=== PATIENT | female | born 1940 | race African-American/Black ===

== ENCOUNTER 2019-08-13 17:23 | Inpatient (IN) | payer MEDICARE, MEDICAID ==
[~2019-08-13] VITALS: Ht 167.6 cm; Wt 110.7 kg
[2019-08-13] MEDS ORDERED: ASPIRIN 81MG TABLET PO ONE (23:00)
[2019-08-13 23:36] LABS: BASOPHILS % 1.3 % (0.0-2.0); EOSINOPHILS % 0.7 % (0.0-5.0); HEMOGLOBIN. 13.8 g/dL (12.0-16.0); LYMPHOCYTES % 25.2 % (20.0-50.0); MEAN CORPUSCULAR HEMOGLOBIN 29.4 pg (28.0-32.0); MEAN CORPUSCULAR VOLUME 87.4 fL (81.0-99.0); MEAN PLATELET VOLUME 8.5 fl (7.4-10.4); MONOCYTES % 6.8 % (2.0-8.0); PLATELET 258 x1000/uL (130-400); RED BLOOD CELL COUNT 4.69 mill/uL (4.2-5.4); RED CELL DISTRIBUTION WIDTH 13.4 % (11.6-14.6)
[2019-08-13 23:49] LABS: INR 1.2; PARTIAL THROMBOPLASTIN TIME 27.3 sec (23.4-31.0); PROTHROMBIN TIME 11.9 sec (9.6-11.0)
[2019-08-13 23:51] LABS: CHLORIDE 106 mEq/L (98-107)
[2019-08-14 01:03] LABS: CLARITY URINE CLOUDY (CLEAR); COLOR URINE YELLOW (YELLOW); KETONES URINE TRACE (NEGATIVE); LEUKOCYTE ESTERASE URINE 2+ (NEGATIVE); NITRITE URINE NEGATIVE (NEGATIVE); OCCULT BLOOD URINE NEGATIVE (NEGATIVE); PH URINE 5.5 (4.5-8.0); PROTEIN URINE TRACE (NEGATIVE); SPECIFIC GRAVITY URINE 1.021 (1.005-1.030); UROBILINOGEN URINE 0.2 E.U./dL (0.2-1.0)
[2019-08-14] MEDS: NIFEDIPINE XL 30MG TAB PO SCH (11:23)
[2019-08-14] MEDS: LISINOPRIL 20MG TABLET PO SCH (11:23)
[2019-08-14 18:57] VITALS: BP 167/91
[2019-08-14] MEDS: NITROFURANTOIN 100MG M/M CAPSULE PO SCH (19:03)
[2019-08-14 20:00] VITALS: BP 148/101
[2019-08-14] MEDS: ATORVASTATIN CALCIUM 20MG TABLET PO SCH (20:12)
[2019-08-14 22:51] VITALS: BP 148/101
[2019-08-15] VITALS: BP 157/88
[2019-08-15 04:00] VITALS: BP 166/89
[2019-08-15] MEDS ORDERED: TRAZ-252 PO (04:24)
[2019-08-15] MEDS ORDERED: METF-414 PO (04:24)
[2019-08-15] MEDS: NITROFURANTOIN 100MG M/M CAPSULE PO SCH ×2 (05:51→18:36)
[2019-08-15 08:00] VITALS: BP 200/95
[2019-08-15] MEDS ORDERED: ASPI-1160 PO (09:47)
[2019-08-15] MEDS ORDERED: NITR100C11 PO (09:47)
[2019-08-15] MEDS ORDERED: ATOR20TA PO (09:52)
[2019-08-15] MEDS ORDERED: LISI-604 PO (09:52)
[2019-08-15] MEDS ORDERED: NIFE-33 PO (09:52)
[2019-08-15] MEDS: LISINOPRIL 20MG TABLET PO SCH (12:13)
[2019-08-15] MEDS: ASPIRIN 81MG TABLET PO SCH ×2 (12:13→12:14)
[2019-08-15] MEDS: NIFEDIPINE XL 30MG TAB PO SCH (12:13)
[2019-08-15] MEDS ORDERED: DEXTROSE 50% WATER 50ML SYRINGE IV PRN (13:00)
[2019-08-15] MEDS: INSULIN LISPRO 100 UNITS/ML SUBCUT SCH ×3 (13:10→21:00)
[2019-08-15 16:00] VITALS: BP 191/115
[2019-08-15] MEDS: BLOOD SUGAR DIAGNOSTIC STRIP TEST SCH ×2 (18:22→21:25)
[2019-08-15 20:00] VITALS: BP 99/73
[2019-08-15] MEDS: ATORVASTATIN CALCIUM 20MG TABLET PO SCH (21:25)
[2019-08-16 00:55] VITALS: BP 148/84
[2019-08-16 04:00] VITALS: BP 150/77
[2019-08-16] MEDS: INSULIN LISPRO 100 UNITS/ML SUBCUT SCH ×4 (06:18→21:00)
[2019-08-16] MEDS: BLOOD SUGAR DIAGNOSTIC STRIP TEST SCH ×4 (06:18→21:46)
[2019-08-16] MEDS: NITROFURANTOIN 100MG M/M CAPSULE PO SCH ×2 (06:33→17:21)
[2019-08-16 08:00] VITALS: BP 152/91
[2019-08-16] MEDS: ASPIRIN 81MG TABLET PO SCH (10:02)
[2019-08-16] MEDS: LISINOPRIL 20MG TABLET PO SCH (10:02)
[2019-08-16] MEDS: NIFEDIPINE XL 30MG TAB PO SCH (10:02)
[2019-08-16 12:00] VITALS: BP 166/68
[2019-08-16 16:00] VITALS: BP 152/84
[2019-08-16 20:00] VITALS: BP 102/48
[2019-08-16] MEDS: ATORVASTATIN CALCIUM 20MG TABLET PO SCH (21:46)
[2019-08-17] VITALS: BP 130/69
[2019-08-17 00:21] VITALS: BP 142/82
[2019-08-17 04:00] VITALS: BP 128/70
[2019-08-17] MEDS: NITROFURANTOIN 100MG M/M CAPSULE PO SCH (05:59)
[2019-08-17] MEDS: BLOOD SUGAR DIAGNOSTIC STRIP TEST SCH ×2 (06:18→12:45)
[2019-08-17] MEDS: INSULIN LISPRO 100 UNITS/ML SUBCUT SCH ×2 (07:06→12:46)
[2019-08-17 08:00] VITALS: BP 151/95
[2019-08-17] MEDS: NIFEDIPINE XL 30MG TAB PO SCH (09:16)
[2019-08-17] MEDS: LISINOPRIL 20MG TABLET PO SCH (09:16)
[2019-08-17] MEDS: ASPIRIN 81MG TABLET PO SCH (09:16)
[2019-08-17 12:00] VITALS: BP 158/96
[2019-08-17] MEDS: LACTULOSE 20G/30ML UDC PO SCH ×2 (14:21→15:56)
[2019-08-17 17:29] VITALS: BP 147/85
== END 2019-08-17 18:03 | DRG 313 ==
LOC: ER 17:23 → 7WST 08-14 00:37 → EDBEDREQ 08-14 00:44 → EDBEDREQTM 08-14 00:44 → EDBEDREQDT 08-14 00:44 → ENRESERV 08-14 16:43
PROVIDERS: ADMIT Internal Medicine; ATTEND Internal Medicine
DX: R07.89 Other chest pain (principal); N39.0 Urinary tract infection, site not specified; E44.1 Mild protein-calorie malnutrition; F17.200 Nicotine dependence, unspecified, uncomplicated; E11.9 Type 2 diabetes mellitus without complications; J44.9 Chronic obstructive pulmonary disease, unspecified; I11.9 Hypertensive heart disease without heart failure; M17.0 Bilateral primary osteoarthritis of knee; M19.011 Primary osteoarthritis, right shoulder; F02.80 Dementia in other diseases classified elsewhere, unspecified severity, without behavioral disturbance, psychotic disturbance, mood disturbance, and anxiety; M19.012 Primary osteoarthritis, left shoulder; G51.0 Bell's palsy; K59.00 Constipation, unspecified; F32.9 Major depressive disorder, single episode, unspecified; G89.29 Other chronic pain; M54.5 Low back pain; Z86.73 Personal history of transient ischemic attack (TIA), and cerebral infarction without residual deficits; Z68.39 Body mass index [BMI] 39.0-39.9, adult
CPT/HCPCS: 36415; 71045; 73560; 74018; 80053; 81003; 82962; 83036; 83880; 84484; 85025; 93005; 93306; 97116; 97162; 99285; C1893

== ENCOUNTER 2021-04-16 15:12 | Inpatient (IN) | payer MEDICARE, MEDICAID ==
[~2021-04-16] VITALS: Ht 165.1 cm; Wt 103.2 kg
[~2021-04-16 15:12] MED LIST: ASPI-1160 PO; ATOR20TA PO; LISI20TA31 PO; METF-414 PO; NIFE-33 PO; NITR100C11 PO; TRAZ-252 PO
[2021-04-16 17:16] LABS: BASOPHILS % 0.6 % (0.0-2.0); EOSINOPHILS % 0.8 % (0.0-5.0); HEMATOCRIT. 43.2 % (36.0-48.0); HEMOGLOBIN. 14.3 g/dL (12.0-16.0); LYMPHOCYTES % 33.3 % (20.0-50.0); MEAN CORPUSCULAR HEMOGLOBIN 29.3 pg (28.0-32.0); MEAN CORPUSCULAR VOLUME 88.5 fL (81.0-99.0); MEAN PLATELET VOLUME 8.6 fl (7.4-10.4); MONOCYTES % 5.6 % (2.0-8.0); NEUTROPHILS % 59.7 % (40.0-76.0); PLATELET 280 x1000/uL (130-400); RED BLOOD CELL COUNT 4.88 mill/uL (4.2-5.4); RED CELL DISTRIBUTION WIDTH 13.6 % (11.6-14.6)
[2021-04-16 17:24] LABS: CHLORIDE 103 mEq/L (98-107)
[2021-04-16 17:27] LABS: INR 1.1; PROTHROMBIN TIME 12.1 sec (9.6-11.0)
[2021-04-17] MEDS ORDERED: NIFEDIPINE XL 30MG TAB PO NR (00:15)
[2021-04-17] MEDS ORDERED: LISINOPRIL 20MG TABLET PO NR (00:15)
[2021-04-17] MEDS: CLONIDINE 0.1MG TABLET PO PRN ×2 (01:49→06:17)
[2021-04-17 08:48] VITALS: BP 169/80
[2021-04-17 09:05] VITALS: BP 169/80
[2021-04-17] MEDS ORDERED: DOCUSATE SODIUM 250MG CAPSULE PO PRN (09:45)
[2021-04-17] MEDS: NIFEDIPINE XL 30MG TAB PO SCH (10:16)
[2021-04-17] MEDS: BENAZEPRIL 10MG TABLET PO SCH (10:16)
[2021-04-17 12:10] VITALS: BP 162/88
[2021-04-17] MEDS ORDERED: DEXTROSE 50% WATER 50ML SYRINGE IV PRN ×2 (13:15)
[2021-04-17 16:04] VITALS: BP 158/86
[2021-04-17 16:35] LABS: BASOPHILS % 0.7 % (0.0-2.0); EOSINOPHILS % 1.5 % (0.0-5.0); HEMATOCRIT. 39.2 % (36.0-48.0); HEMOGLOBIN. 13.2 g/dL (12.0-16.0); LYMPHOCYTES % 24.9 % (20.0-50.0); MEAN CORPUSCULAR HEMOGLOBIN 29.2 pg (28.0-32.0); MEAN CORPUSCULAR VOLUME 86.6 fL (81.0-99.0); MEAN PLATELET VOLUME 9.2 fl (7.4-10.4); MONOCYTES % 6.8 % (2.0-8.0); NEUTROPHILS % 66.1 % (40.0-76.0); PLATELET 161 x1000/uL (130-400); RED BLOOD CELL COUNT 4.53 mill/uL (4.2-5.4); RED CELL DISTRIBUTION WIDTH 13.6 % (11.6-14.6)
[2021-04-17 16:45] LABS: T4 FREE 1.12 ng/dL (0.76-1.46)
[2021-04-17 16:49] LABS: CLARITY URINE CLOUDY (CLEAR); COLOR URINE RED (YELLOW); KETONES URINE TRACE (NEGATIVE); LEUKOCYTE ESTERASE URINE 2+ (NEGATIVE); NITRITE URINE NEGATIVE (NEGATIVE); OCCULT BLOOD URINE 3+ (NEGATIVE); PH URINE 5.5 (4.5-8.0); PROTEIN URINE 2+ (NEGATIVE); SPECIFIC GRAVITY URINE 1.016 (1.005-1.030)
[2021-04-17] MEDS: BLOOD SUGAR DIAGNOSTIC STRIP TEST SCH ×2 (18:15→21:00)
[2021-04-17] MEDS: METFORMIN HCL 500MG TABLET PO SCH (18:20)
[2021-04-17] MEDS: INSULIN LISPRO 100 UNITS/ML SUBCUT SCH ×2 (18:22→22:09)
[2021-04-17 20:30] VITALS: BP 144/85
[2021-04-17] MEDS: ATORVASTATIN CALCIUM 20MG TABLET PO SCH (22:08)
[2021-04-18 00:23] VITALS: BP 163/76
[2021-04-18 04:00] VITALS: BP 124/69
[2021-04-18] MEDS: BLOOD SUGAR DIAGNOSTIC STRIP TEST SCH ×4 (07:28→20:34)
[2021-04-18 08:04] VITALS: BP 130/77
[2021-04-18] MEDS: METFORMIN HCL 500MG TABLET PO SCH ×2 (08:07→16:51)
[2021-04-18] MEDS: NIFEDIPINE XL 30MG TAB PO SCH (08:07)
[2021-04-18] MEDS: BENAZEPRIL 10MG TABLET PO SCH (08:08)
[2021-04-18] MEDS: INSULIN LISPRO 100 UNITS/ML SUBCUT SCH ×4 (08:10→21:00)
[2021-04-18 11:46] VITALS: BP 147/68
[2021-04-18 16:03] VITALS: BP 150/83
[2021-04-18 20:00] VITALS: BP 129/64
[2021-04-18] MEDS: ATORVASTATIN CALCIUM 20MG TABLET PO SCH (21:07)
[2021-04-19] VITALS: BP 133/80
[2021-04-19 04:00] VITALS: BP 155/78
[2021-04-19] MEDS: BLOOD SUGAR DIAGNOSTIC STRIP TEST SCH ×3 (07:18→17:23)
[2021-04-19] MEDS: INSULIN LISPRO 100 UNITS/ML SUBCUT SCH ×3 (07:18→17:23)
[2021-04-19 08:00] VITALS: BP 153/78
[2021-04-19] MEDS: BENAZEPRIL 10MG TABLET PO SCH (08:30)
[2021-04-19] MEDS: NIFEDIPINE XL 30MG TAB PO SCH (08:30)
[2021-04-19] MEDS: METFORMIN HCL 500MG TABLET PO SCH ×2 (08:30→18:12)
[2021-04-19 12:09] VITALS: BP 131/75
[2021-04-19 16:00] VITALS: BP 151/75
[2021-04-19 16:48] VITALS: BP 151/75
== END 2021-04-19 19:07 | DRG 760 ==
LOC: ER 15:12 → MICUSO 20:21 → ENRESERV 23:12 → CANRESERV 23:12 → EDBEDREQSVC 04-17 00:06 → 6WST 04-17 07:11
PROVIDERS: ADMIT Internal Medicine; ATTEND Internal Medicine
DX: D25.9 Leiomyoma of uterus, unspecified (principal); N39.0 Urinary tract infection, site not specified; E44.1 Mild protein-calorie malnutrition; K80.20 Calculus of gallbladder without cholecystitis without obstruction; I10 Essential (primary) hypertension; E11.9 Type 2 diabetes mellitus without complications; E66.9 Obesity, unspecified; F03.90 Unspecified dementia, unspecified severity, without behavioral disturbance, psychotic disturbance, mood disturbance, and anxiety; M17.0 Bilateral primary osteoarthritis of knee; C54.1 Malignant neoplasm of endometrium; Z20.822 Contact with and (suspected) exposure to COVID-19; N85.00 Endometrial hyperplasia, unspecified; Z86.73 Personal history of transient ischemic attack (TIA), and cerebral infarction without residual deficits; Z79.82 Long term (current) use of aspirin; Z79.84 Long term (current) use of oral hypoglycemic drugs; Z79.899 Other long term (current) drug therapy; Z68.37 Body mass index [BMI] 37.0-37.9, adult
CPT/HCPCS: 36415; 74018; 74176; 76830; 76856; 80053; 81003; 82962; 83036; 84439; 84443; 85025; 86850; 86900; 87077; 87186; 87426; 97162; 99285; J1815; A4315

== ENCOUNTER → 2022-04-30 | Outpatient (CLI) | payer MEDICARE, MEDICAID | END | disposition home or self-care (01) | LOC: US 09:36 | PROVIDERS: ATTEND Internal Medicine | DX: D25.9 Leiomyoma of uterus, unspecified (principal) | CPT/HCPCS: 76830; 76856 ==